=== PATIENT | male | born 1940 | race African-American/Black ===

== ENCOUNTER 2017-08-29 11:53 | Emergency (ER) | payer MEDICARE, MEDICAID ==
--- NOTE | 2017-08-29 13:06 | ER Document Report ---
ED Medical Screen (RME) - General Chief Complaint: Skin Problem Stated Complaint: POSSIBLE INFECTION ON LEGS Time Seen by Provider: 08/29/17 13:01 Mode of Arrival: Ambulatory Information source: Patient Notes: This is a 77-year-old man referred to the emergency room by [facility] ( primary care provider) for bilateral lower extremity cellulitis. Patient complains of increasing swelling, redness to both lower extremities. TRAVEL OUTSIDE OF THE [place] IN LAST 30 DAYS: No - Related Data Allergies/Adverse Reactions: Penicillins Allergy (Severe, Verified 08/29/17 11:55) Swelling Past Medical History - Past Medical History Cardiac Medical History: Reports: Hx Heart Attack - 's, Hx Hypercholesterolemia, Hx Hypertension Denies: Hx Coronary Artery Disease Pulmonary Medical History: Reports: Hx COPD, Hx Pneumonia Denies: Hx Asthma, Hx Bronchitis Neurological Medical History: Denies: Hx Cerebrovascular Accident, Hx Seizures Malignancy Medical History: Reports Hx Prostate Cancer Musculoskeltal Medical History: Reports Hx Arthritis - knees, ankles, back Past Surgical History: Reports: Hx Urinary Tract Surgery - prostate surgery. Denies: Hx Pacemaker - Immunizations Immunizations up to date: Yes Hx Diphtheria, Pertussis, Tetanus Vaccination: Yes Physical Exam - Vital signs Vitals: Temp Pulse Resp BP Pulse Ox 97.9 F 62 20 161/92 H 98 08/29/17 11:57 08/29/17 11:57 08/29/17 11:57 08/29/17 11:57 08/29/17 11:57 Course - Vital Signs Vital signs: Temp Pulse Resp BP Pulse Ox 97.9 F 62 20 161/92 H 98 08/29/17 11:57 08/29/17 11:57 08/29/17 11:57 08/29/17 11:57 08/29/17 11:57 Doctor's Discharge - Discharge Referrals: VOLODYMYR UP MD [Primary Care Provider] - Follow up as needed
--- NOTE | 2017-08-29 13:48 | RADIOLOGY REPORT (SQ) ---
EXAM DESCRIPTION: CHEST 2 VIEWS COMPLETED DATE/TIME: 08/29/2017 1:40 pm REASON FOR STUDY: fever COMPARISON: 09/16/2014. EXAM PARAMETERS: NUMBER OF VIEWS: two views TECHNIQUE: Digital Frontal and Lateral radiographic views of the chest acquired. RADIATION DOSE: NA LIMITATIONS: none FINDINGS: LUNGS AND PLEURA: No opacities, masses or pneumothorax. No pleural effusion. MEDIASTINUM AND HILAR STRUCTURES: No masses or contour abnormalities. HEART AND VASCULAR STRUCTURES: Heart normal size. No evidence for failure. BONES: No acute findings. HARDWARE: None in the chest. OTHER: No other significant finding. IMPRESSION: NO ACUTE RADIOGRAPHIC FINDING IN THE CHEST. TECHNICAL DOCUMENTATION: JOB ID: [id number] [employer]- All Rights Reserved Reading location - IP/workstation name: [email or web address]
[2017-08-29 14:05] LABS: ABSOLUTE BASOPHILS # (AUTO) 0.1 10^3/uL (0.0-0.2); ABSOLUTE MONOCYTES (AUTO) 0.7 10^3/uL (0.1-1.4); ABSOLUTE NEUT (AUTO) 3.6 10^3/uL (1.7-8.2); EOSINOPHILS % (AUTO) 13.8 % (0-6); HEMATOCRIT 38.6 % (37.9-51.0); HEMOGLOBIN 12.6 g/dL (13.5-17.0); LYMPHOCYTES % (AUTO) 27.1 % (13-45); MEAN CORPUSCULAR HEMOGLOBIN 31.1 pg (27.0-33.4); MEAN CORPUSCULAR HGB CONC 32.7 g/dL (32.0-36.0); MEAN CORPUSCULAR VOLUME 95 fl (80-97); MONOCYTES % (AUTO) 9.2 % (3-13); PLATELET COUNT 302 10^3/uL (150-450); RED BLOOD COUNT 4.05 10^6/uL (4.35-5.55); RED CELL DISTRIBUTION WIDTH 14.7 % (11.5-14.0); SEGMENTED NEUTROPHILS % (AUTO) 48.9 % (42-78); TOTAL CELLS COUNTED % (AUTO) 100 %; WHITE BLOOD COUNT 7.3 10^3/uL (4.0-10.5)
[2017-08-29 14:16] LABS: ALANINE AMINOTRANSFERASE 22 U/L (21-72); ALBUMIN 3.7 g/dL (3.5-5.0); ALKALINE PHOSPHATASE 97 U/L (38-126); ANION GAP 12 (5-19); ASPARTATE AMINO TRANSFERASE 35 U/L (17-59); BILIRUBIN,DIRECT 0.4 mg/dL (0.0-0.4); BILIRUBIN,TOTAL 0.4 mg/dL (0.2-1.3); BLOOD UREA NITROGEN 16 mg/dL (7-20); CALCIUM 9.3 mg/dL (8.4-10.2); CARBON DIOXIDE 24 mmol/L (22-30); CHLORIDE 108 mmol/L (98-107); GLUCOSE 77 mg/dL (75-110); POTASSIUM 4.3 mmol/L (3.6-5.0); SODIUM 143.6 mmol/L (137-145); TOTAL PROTEIN 6.7 g/dL (6.3-8.2)
[2017-08-29 14:22] LABS: PROTHROMBIN TIME 13.7 SEC (11.4-15.4)
--- NOTE | 2017-08-29 15:30 | ER Document Report ---
ED General <PLACIDO JARVIS C - Last Filed: 08/29/17 17:28> - General Mode of Arrival: Ambulatory TRAVEL OUTSIDE OF THE [place] IN LAST 30 DAYS: No - HPI Onset: Other Onset/Duration: Gradual, Persistent, Worse Quality of pain: Burning Severity: Moderate Associated symptoms: Fever. denies: Chest pain, Nausea, Vomiting, Shortness of breath Exacerbated by: Walking Relieved by: Denies Similar symptoms previously: Yes Recently seen / treated by doctor: Yes <LAZARO JIMENEZ - Last Filed: 08/29/17 22:02> - General Chief Complaint: Skin Problem Stated Complaint: POSSIBLE INFECTION ON LEGS Time Seen by Provider: 08/29/17 13:01 Notes: 77-year-old male with hypertension, hyperlipidemia, COPD, CAD, previous DVT in 2011 presents with bilateral lower leg swelling. Patient states that swelling and pain have been present for 3 months. He reports a worsening of pain over the last month. He was seen by [facility] today and was sent to the emergency room with concern for cellulitis versus DVT. Patient denies any recent chest pain, shortness of breath, abdominal pain, fever, chills. (LAZARO JIMENEZ) - Related Data Allergies/Adverse Reactions: Penicillins Allergy (Severe, Verified 08/29/17 11:55) Swelling Past Medical History - General Information source: Patient - Social History Smoking Status: Current Every Day Smoker Chew tobacco use (# tins/day): No Frequency of alcohol use: Occasional Drug Abuse: None Lives with: Alone Family History: Reviewed & Not Pertinent Patient has suicidal ideation: No Patient has homicidal ideation: No - Past Medical History Cardiac Medical History: Reports: Hx Heart Attack - 's, Hx Hypercholesterolemia, Hx Hypertension Denies: Hx Coronary Artery Disease Pulmonary Medical History: Reports: Hx COPD, Hx Pneumonia Denies: Hx Asthma, Hx Bronchitis Neurological Medical History: Denies: Hx Cerebrovascular Accident, Hx Seizures Renal/ Medical History: Denies: Hx Peritoneal Dialysis Malignancy Medical History: Reports Hx Prostate Cancer Musculoskeltal Medical History: Reports Hx Arthritis - knees, ankles, back Past Surgical History: Reports: Hx Urinary Tract Surgery - prostate surgery. Denies: Hx Pacemaker - Immunizations Immunizations up to date: Yes Hx Diphtheria, Pertussis, Tetanus Vaccination: Yes Hx Pneumococcal Vaccination: 03/26/08 <LAZARO JIMENEZ - Last Filed: 08/29/17 22:02> Review of Systems - Review of Systems Constitutional: Fever, Malaise, Weakness EENT: denies: Blurred vision Cardiovascular: denies: Chest pain, Dizziness Respiratory: denies: Short of breath Gastrointestinal: denies: Abdominal pain Genitourinary: denies: Dysuria, Flank pain, Hematuria Musculoskeletal: Joint swelling, Muscle stiffness, Leg swelling, Ankle swelling. denies: Back pain Skin: Dryness, Lesions, Rash Hematologic/Lymphatic: denies: Easy bleeding Neurological/Psychological: denies: Confusion -: Yes All other systems reviewed and negative <JIMENEZLAZAROSHARATH - Last Filed: 08/29/17 22:02> Physical Exam <SIMONAJULY C - Last Filed: 08/29/17 17:28> <JIMENEZLAZARO - Last Filed: 08/29/17 22:02> - Vital signs Vitals: Temp Pulse Resp BP Pulse Ox 97.9 F 62 20 161/92 H 98 08/29/17 11:57 08/29/17 11:57 08/29/17 11:57 08/29/17 11:57 08/29/17 11:57 - Notes Notes: PHYSICAL EXAMINATION: GENERAL: Well-appearing, well-nourished and in no acute distress. HEAD: Atraumatic, normocephalic. EYES: Pupils equal round and reactive to light, extraocular movements intact, sclera anicteric, conjunctiva are normal. ENT: Nares patent, oropharynx clear without exudates. Moist mucous membranes. NECK: Normal range of motion, supple without lymphadenopathy LUNGS: Breath sounds clear to auscultation bilaterally and equal. No wheezes rales or rhonchi. HEART: Regular rate and rhythm without murmurs ABDOMEN: Soft, nontender, nondistended abdomen. No guarding, no rebound. No masses appreciated. Musculoskeletal: Normal range of motion, no pitting or edema. No cyanosis. NEUROLOGICAL: Cranial nerves grossly intact. Normal speech, normal gait. Normal sensory, motor exams PSYCH: Normal mood, normal affect. SKIN: Erythema bilateral lower extremities no associated warmth. Multiple plaque-like lesions on his trunk, lower extremities. (LAZARO JIMENEZ) Course - Laboratory Result Diagrams: 08/29/17 13:50 08/29/17 13:50 <MOSUNITHAPLACIDO Emily - Last Filed: 08/29/17 17:28> - Laboratory Result Diagrams: 08/29/17 13:50 08/29/17 13:50 - Diagnostic Test Radiology reviewed: Image reviewed, Reports reviewed <LAZARO JIMENEZ E - Last Filed: 08/29/17 22:02> - Re-evaluation Re-evalutation: 08/29/17 21:58 Laboratory 08/29/17 08/29/17 08/29/17 13:50 13:50 13:50 WBC 7.3 RBC 4.05 L Hgb 12.6 L Hct 38.6 MCV 95 MCH 31.1 MCHC 32.7 RDW 14.7 H Plt Count 302 Seg Neutrophils % 48.9 Lymphocytes % 27.1 Monocytes % 9.2 Eosinophils % 13.8 H Basophils % 1.0 Absolute Neutrophils 3.6 Absolute Lymphocytes 2.0 Absolute Monocytes 0.7 Absolute Eosinophils 1.0 H Absolute Basophils 0.1 PT 13.7 INR 1.00 Sodium 143.6 Potassium 4.3 Chloride 108 H Carbon Dioxide 24 Anion Gap 12 BUN 16 Creatinine 1.90 H Est GFR ( Amer) 42 L Est GFR (Non-Af Amer) 34 L Glucose 77 Lactic Acid Calcium 9.3 Phosphorus Magnesium Total Bilirubin 0.4 Direct Bilirubin 0.4 Neonat Total Bilirubin Not Reportable Neonat Direct Bilirubin Not Reportable Neonat Indirect Bili Not Reportable AST 35 ALT 22 Alkaline Phosphatase 97 NT-Pro-B Natriuret Pep Total Protein 6.7 Albumin 3.7 08/29/17 08/29/17 08/29/17 13:50 13:50 13:50 WBC RBC Hgb Hct MCV MCH MCHC RDW Plt Count Seg Neutrophils % Lymphocytes % Monocytes % Eosinophils % Basophils % Absolute Neutrophils Absolute Lymphocytes Absolute Monocytes Absolute Eosinophils Absolute Basophils PT INR Sodium Potassium Chloride Carbon Dioxide Anion Gap BUN Creatinine Est GFR ( Amer) Est GFR (Non-Af Amer) Glucose Lactic Acid 2.1 Calcium Phosphorus 4.0 Magnesium 1.9 Total Bilirubin Direct Bilirubin Neonat Total Bilirubin Neonat Direct Bilirubin Neonat Indirect Bili AST ALT Alkaline Phosphatase NT-Pro-B Natriuret Pep 3440 H Total Protein Albumin 08/29/17 17:40 WBC RBC Hgb Hct MCV MCH MCHC RDW Plt Count Seg Neutrophils % Lymphocytes % Monocytes % Eosinophils % Basophils % Absolute Neutrophils Absolute Lymphocytes Absolute Monocytes Absolute Eosinophils Absolute Basophils PT INR Sodium Potassium Chloride Carbon Dioxide Anion Gap BUN Creatinine Est GFR ( Amer) Est GFR (Non-Af Amer) Glucose Lactic Acid 3.2 H Calcium Phosphorus Magnesium Total Bilirubin Direct Bilirubin Neonat Total Bilirubin Neonat Direct Bilirubin Neonat Indirect Bili AST ALT Alkaline Phosphatase NT-Pro-B Natriuret Pep Total Protein Albumin Chest X-Ray 08/29/17 13:05 IMPRESSION: NO ACUTE RADIOGRAPHIC FINDING IN THE CHEST. 08/29/17 21:59 77-year-old male with hypertension, hyperlipidemia, COPD, CAD, previous DVT in 2011 presents with bilateral lower leg swelling. Patient states that swelling and pain have been present for 3 months. He reports a worsening of pain over the last month. He was seen by [facility] today and was sent to the emergency room with concern for cellulitis versus DVT. Patient was seen by myself upon arrival. Vital signs were reviewed. Patient is afebrile, normotensive and not hypoxic. Patient does not appear toxic or dehydrated. They are in no acute distress. Previous medical records and nursing notes reviewed. Significant findings include lower extremity edema, erythema and multiple plaque-like lesions. Patient received clindamycin IV. Hospitalist was consulted for admission for lower extremity cellulitis. Hospitalist evaluated the patient and deemed him safe for discharge home. Discharge instructions and prescriptions were provided by the hospitalist. Patient is agreeable with discharge home. 08/29/17 22:00 (LAZARO JIMENEZ) - Vital Signs Vital signs: Temp Pulse Resp BP Pulse Ox 97.2 F 77 18 153/90 H 94 08/29/17 18:23 08/29/17 18:23 08/29/17 18:23 08/29/17 18:23 08/29/17 18:23 - Laboratory Laboratory results interpreted by hi: 08/29/17 08/29/17 08/29/17 13:50 13:50 13:50 RBC 4.05 L Hgb 12.6 L RDW 14.7 H Eosinophils % 13.8 H Absolute Eosinophils 1.0 H Chloride 108 H Creatinine 1.90 H Est GFR ( Amer) 42 L Est GFR (Non-Af Amer) 34 L Lactic Acid NT-Pro-B Natriuret Pep 3440 H 08/29/17 17:40 RBC Hgb RDW Eosinophils % Absolute Eosinophils Chloride Creatinine Est GFR ( Amer) Est GFR (Non-Af Amer) Lactic Acid 3.2 H NT-Pro-B Natriuret Pep Discharge <PLACIDO JARVIS C - Last Filed: 08/29/17 17:28> - Discharge Admitting Provider: Hospitalist Unit Admitted: Medical Floor <LAZARO JIMENEZ E - Last Filed: 08/29/17 22:02> - Discharge Clinical Impression: Rash and nonspecific skin eruption Condition: Good Disposition: HOME, SELF-CARE
[2017-08-29] MEDS ORDERED: CLINDAMYCIN 600 MG/D5W RTU 600 MG/50 ML RTUPB IV ONE (15:47)
[2017-08-29 18:26] VITALS: BP 153/90
--- NOTE | 2017-08-29 18:31 | PDOC CONSULTATION ---
Consultation Consult Date: 08/29/17 Attending physician:: LAZARO JIMENEZ Consult reason:: Rash, possible cellulitis History of Present Illness Admission Date/PCP: Jeri LINDA Patient complains of: Rash and itching all over his body History of Present Illness: BRANDYN NOGUEIRA JR is a 77 year old male with past history of Hypertension Chronic pain Outpatient meds: Hydralazine 50mg TID Aspirin 81mg daily Toprol XL 50mg daily Cymbalta 30 mg daily He presented with a generalized itching rash over hos entore body including neck chest and torso and extremities. There is hyperkeratosis and mild erythema. Chronic Lower extremity edema, L leg slightly more red than the right. No DVT of LE per Dr. Jimenez. He was given IV Clindamycin 1 dose in the ER. patient woulf like to go home. I think he could be sent home with a course of steroids and antibiotics for eczema and possible early L leg cellulitis. Past Medical History Cardiac Medical History: Reports: Hyperlipidema, Hypertension Pulmonary Medical History: Reports: Pneumonia Musculoskeltal Medical History: Reports: Arthritis - knees, ankles, back Past Surgical History Past Surgical History: Denies: Pacemaker Social History Smoking Status: Current Every Day Smoker Frequency of Alcohol Use: Heavy Hx Recreational Drug Use: No Family History Family History: Hypertension Parental Family History Reviewed: Yes Children Family History Reviewed: Yes Sibling(s) Family History Reviewed.: Yes Medication/Allergy Home Medications: Clindamycin HCl 300 mg PO Q6H 7 Days #28 capsule 08/29/17 Lactobacillus Acidophilus [Acidophilus Lactobacilli] 1 each PO DAILY 10 Days # 10 capsule 08/29/17 Prednisone 60 mg PO DAILY #26 tablet 08/29/17 Allergies/Adverse Reactions: Penicillins Allergy (Severe, Verified 08/29/17 11:55) Swelling Review of Systems Constitutional: ABSENT: fever(s) Eyes: ABSENT: visual disturbances Ears: ABSENT: hearing changes Nose, Mouth, and Throat: ABSENT: sore throat Cardiovascular: PRESENT: edema. ABSENT: chest pain Respiratory: ABSENT: dyspnea Gastrointestinal: ABSENT: abdominal pain, dysphagia Genitourinary: ABSENT: dysuria Integumentary: PRESENT: pruritus, rash Neurological: ABSENT: focal weakness Psychiatric: ABSENT: hallucinations Physical Exam Vital Signs: Temp Pulse Resp BP Pulse Ox 97.9 F 62 20 161/92 H 98 08/29/17 11:57 06/06/18 11:57 08/29/17 11:57 08/29/17 11:57 08/29/17 11:57 Intake & Output 08/28/17 08/29/17 08/30/17 06:59 06:59 06:59 Weight 87.6 kg General appearance: PRESENT: no acute distress Head exam: PRESENT: normocephalic Respiratory exam: PRESENT: symmetrical, unlabored. ABSENT: crackles, wheezes GI/Abdominal exam: PRESENT: normal bowel sounds, soft. ABSENT: tenderness Rectal exam: PRESENT: deferred Extremities exam: PRESENT: pedal edema Neurological exam: PRESENT: alert, awake, oriented to person, oriented to place , oriented to time, oriented to situation Skin exam: PRESENT: rash - Hyperkeratotic rash over torso and extremities and ears Results Laboratory Results: 08/29/17 13:50 08/29/17 13:50 08/29/17 08/29/17 08/29/17 13:50 13:50 13:50 WBC 7.3 RBC 4.05 L Hgb 12.6 L Hct 38.6 MCV 95 MCH 31.1 MCHC 32.7 RDW 14.7 H Plt Count 302 Seg Neutrophils % 48.9 Lymphocytes % 27.1 Monocytes % 9.2 Eosinophils % 13.8 H Basophils % 1.0 Absolute Neutrophils 3.6 Absolute Lymphocytes 2.0 Absolute Monocytes 0.7 Absolute Eosinophils 1.0 H Absolute Basophils 0.1 Sodium 143.6 Potassium 4.3 Chloride 108 H Carbon Dioxide 24 Anion Gap 12 BUN 16 Creatinine 1.90 H Est GFR ( Amer) 42 L Est GFR (Non-Af Amer) 34 L Glucose 77 Lactic Acid 2.1 Calcium 9.3 Phosphorus Magnesium Total Bilirubin 0.4 AST 35 ALT 22 Alkaline Phosphatase 97 Total Protein 6.7 Albumin 3.7 08/29/17 13:50 WBC RBC Hgb Hct MCV MCH MCHC RDW Plt Count Seg Neutrophils % Lymphocytes % Monocytes % Eosinophils % Basophils % Absolute Neutrophils Absolute Lymphocytes Absolute Monocytes Absolute Eosinophils Absolute Basophils Sodium Potassium Chloride Carbon Dioxide Anion Gap BUN Creatinine Est GFR ( Amer) Est GFR (Non-Af Amer) Glucose Lactic Acid Calcium Phosphorus 4.0 Magnesium 1.9 Total Bilirubin AST ALT Alkaline Phosphatase Total Protein Albumin 08/29/17 13:50 NT-Pro-B Natriuret Pep 3440 H Impressions: Chest X-Ray 08/29/17 13:05 IMPRESSION: NO ACUTE RADIOGRAPHIC FINDING IN THE CHEST. Assessment & Plan - Diagnosis (1) Rash and nonspecific skin eruption Is this a current diagnosis for this admission?: Yes Plan: Course of Prednisone and Antibiotic Follow up with PCP in 2-3 days. - Time Time Spent: 50 to 70 Minutes Anticipated discharge: Home
[2017-08-29] MEDS ORDERED: PREDNISONE 20 MG TABLET PO ONE (19:00)
--- NOTE | 2017-08-30 08:11 | XCELERA REPORT ---
[address] [address] Lower Extremity Venous Evaluation Name: BRANDYN NOGUEIRA JR Age: 77 yrs Gender: Male : 1940 Patient Status: Emergency Patient Location: ER Study Date: 08/29/2017 02:31 PM Procedure: Color flow and duplex imaging bilaterally of the veins of the lower extremities as well as the Common Femoral veins. Reason For Study: bilateral le swelling: l>R Ordering Physician: SE BABB Performed By: Cal Hale Right Sided Venous Evaluation Normal vessel filling wall to wall, compression and augmentation as well as Colour flow down to the infrageniculate veins. Left Sided Venous Evaluation Normal vessel filling wall to wall, compression and augmentation as well as Colour flow down to the infrageniculate veins. Interpretation Summary No duplex evidence of DVT or obstruction in the bilateral lower extremities. : SE BABB Lennox
== END 2017-08-29 17:10 | disposition home or self-care (01) ==
LOC: ER 11:53 → EH 18:34 → UNDOADMIN 18:34 → UNDODISIN 19:31
DX: M79.89 Other specified soft tissue disorders (principal); R21 Rash and other nonspecific skin eruption; R50.9 Fever, unspecified; R53.1 Weakness; F17.200 Nicotine dependence, unspecified, uncomplicated; I10 Essential (primary) hypertension; J44.9 Chronic obstructive pulmonary disease, unspecified; I25.10 Atherosclerotic heart disease of native coronary artery without angina pectoris; E78.00 Pure hypercholesterolemia, unspecified; Z86.718 Personal history of other venous thrombosis and embolism; Z88.0 Allergy status to penicillin; I25.2 Old myocardial infarction; Z85.46 Personal history of malignant neoplasm of prostate
CPT/HCPCS: 99284; 96365; 36415; 87040; 83735; 84100; 85025; 85610; 80053; 83605; 83880; 93970 ×2; 71046; A9270; J7512

== ENCOUNTER 2017-09-22 20:46 | Emergency (ER) | payer MEDICARE, MEDICAID ==
--- NOTE | 2017-09-22 21:24 | ER Document Report ---
ED Medical Screen (RME) - General Chief Complaint: Skin Problem Stated Complaint: RASH Time Seen by Provider: 09/22/17 21:17 Mode of Arrival: Ambulatory Information source: Patient Notes: PATIENT C/O SEVERE DRY SKIN,TREATED WITH CREAM. Referred to derm but doesn't have an appointment until October. Denied new medications. TRAVEL OUTSIDE OF THE [place] IN LAST 30 DAYS: No - Related Data Allergies/Adverse Reactions: Penicillins Allergy (Severe, Verified 08/29/17 11:55) Swelling Past Medical History - Past Medical History Cardiac Medical History: Reports: Hx Heart Attack - s, Hx Hypercholesterolemia, Hx Hypertension Denies: Hx Coronary Artery Disease Pulmonary Medical History: Reports: Hx COPD, Hx Pneumonia Denies: Hx Asthma, Hx Bronchitis Neurological Medical History: Denies: Hx Cerebrovascular Accident, Hx Seizures Renal/ Medical History: Denies: Hx Peritoneal Dialysis Malignancy Medical History: Reports Hx Prostate Cancer Musculoskeltal Medical History: Reports Hx Arthritis - knees, ankles, back Past Surgical History: Reports: Hx Urinary Tract Surgery - prostate surgery. Denies: Hx Pacemaker - Immunizations Immunizations up to date: Yes Hx Diphtheria, Pertussis, Tetanus Vaccination: Yes Physical Exam - Vital signs Vitals: Temp Pulse Resp BP Pulse Ox 98.6 F 93 24 H 184/87 H 96 09/22/17 20:58 09/22/17 20:58 09/22/17 20:58 09/22/17 20:58 09/22/17 20:58 Course - Vital Signs Vital signs: Temp Pulse Resp BP Pulse Ox 98.6 F 93 24 H 184/87 H 96 09/22/17 20:58 09/22/17 20:58 09/22/17 20:58 09/22/17 20:58 09/22/17 20:58
[2017-09-22 23:18] LABS: ABSOLUTE BASOPHILS # (AUTO) 0.1 10^3/uL (0.0-0.2); ABSOLUTE EOSINOPHILS # (AUTO) 0.4 10^3/uL (0.0-0.6); ABSOLUTE LYMPHOCYTES (AUTO) 1.6 10^3/uL (0.5-4.7); ABSOLUTE MONOCYTES (AUTO) 0.8 10^3/uL (0.1-1.4); EOSINOPHILS % (AUTO) 4.7 % (0-6); HEMATOCRIT 37.7 % (37.9-51.0); HEMOGLOBIN 12.3 g/dL (13.5-17.0); LYMPHOCYTES % (AUTO) 20.8 % (13-45); MEAN CORPUSCULAR HEMOGLOBIN 30.4 pg (27.0-33.4); MEAN CORPUSCULAR HGB CONC 32.8 g/dL (32.0-36.0); MEAN CORPUSCULAR VOLUME 93 fl (80-97); MONOCYTES % (AUTO) 9.6 % (3-13); PLATELET COUNT 245 10^3/uL (150-450); RED BLOOD COUNT 4.05 10^6/uL (4.35-5.55); RED CELL DISTRIBUTION WIDTH 15.4 % (11.5-14.0); SEGMENTED NEUTROPHILS % (AUTO) 63.9 % (42-78); TOTAL CELLS COUNTED % (AUTO) 100 %; WHITE BLOOD COUNT 7.8 10^3/uL (4.0-10.5)
[2017-09-22 23:41] LABS: ALANINE AMINOTRANSFERASE 20 U/L (21-72); ALBUMIN 3.2 g/dL (3.5-5.0); ALKALINE PHOSPHATASE 99 U/L (38-126); ANION GAP 15 (5-19); ASPARTATE AMINO TRANSFERASE 23 U/L (17-59); BILIRUBIN,DIRECT 0.5 mg/dL (0.0-0.4); BILIRUBIN,TOTAL 0.7 mg/dL (0.2-1.3); BLOOD UREA NITROGEN 9 mg/dL (7-20); CARBON DIOXIDE 23 mmol/L (22-30); CHLORIDE 111 mmol/L (98-107); GLUCOSE 98 mg/dL (75-110); POTASSIUM 4.6 mmol/L (3.6-5.0); SODIUM 148.9 mmol/L (137-145)
[2017-09-22] MEDS ORDERED: PREDNISONE 20 MG TABLET PO ONE (23:57)
--- NOTE | 2017-09-23 00:02 | ER Document Report ---
ED General - General Chief Complaint: Skin Problem Stated Complaint: RASH Time Seen by Provider: 09/22/17 21:17 Mode of Arrival: Ambulatory Notes: Patient is a 77-year-old male with a past medical history of hypertension, noncompliant with medications, history of chronic kidney disease who presents with one-month ongoing diffuse dry skin that is intensely pruritic. He was seen in the emergency department approximately 3 weeks ago for the same. At that time he was placed on a course of steroids and antibiotics. He states that he did have some improvement while on the brief course of steroids but when they were discontinued the dry skin and itching continued. He has seen his general doctor and is being prescribed a "powder to use during bath time as well as a cream for after baths" but has not had any significant relief with these interventions. He is scheduled to see a pipeline construction inspector in October but states that the itching has become so intense he could not wait any longer. He denies any fever or constitutional symptoms. Denies anything is new or different that prompted a visit to the emergency department today. TRAVEL OUTSIDE OF THE [place] IN LAST 30 DAYS: No - Related Data Allergies/Adverse Reactions: Penicillins Allergy (Severe, Verified 08/29/17 11:55) Swelling Past Medical History - General Information source: Patient - Social History Smoking Status: Never Smoker Frequency of alcohol use: None Drug Abuse: None Lives with: Family Family History: Reviewed & Not Pertinent, Hypertension - Past Medical History Cardiac Medical History: Reports: Hx Heart Attack - 90's, Hx Hypercholesterolemia, Hx Hypertension Denies: Hx Coronary Artery Disease Pulmonary Medical History: Reports: Hx COPD, Hx Pneumonia Denies: Hx Asthma, Hx Bronchitis Neurological Medical History: Denies: Hx Cerebrovascular Accident, Hx Seizures Renal/ Medical History: Denies: Hx Peritoneal Dialysis Malignancy Medical History: Reports Hx Prostate Cancer Musculoskeltal Medical History: Reports Hx Arthritis - knees, ankles, back Past Surgical History: Reports: Hx Urinary Tract Surgery - prostate surgery. Denies: Hx Pacemaker - Immunizations Immunizations up to date: Yes Hx Diphtheria, Pertussis, Tetanus Vaccination: Yes Hx Pneumococcal Vaccination: 03/26/08 Review of Systems - Review of Systems Notes: Constitutional: Negative for fever. HENT: Negative for sore throat. Eyes: Negative for visual changes. Cardiovascular: Negative for chest pain. Respiratory: Negative for shortness of breath. Gastrointestinal: Negative for abdominal pain, vomiting or diarrhea. Genitourinary: Negative for dysuria. Musculoskeletal: Negative for back pain. Skin: Positive for diffusely dry skin associated pruritus Neurological: Negative for headaches, weakness or numbness. 10 point ROS negative except as marked above and in HPI. Physical Exam - Vital signs Vitals: Temp Pulse Resp BP Pulse Ox 98.6 F 93 24 H 184/87 H 96 09/22/17 20:58 09/22/17 20:58 09/22/17 20:58 09/22/17 20:58 09/22/17 20:58 Interpretation: Hypertensive Notes: PHYSICAL EXAMINATION: GENERAL: Well-appearing, well-nourished and in no acute distress. HEAD: Atraumatic, normocephalic. EYES: Pupils equal round and reactive to light, extraocular movements intact, sclera anicteric, conjunctiva are normal. ENT: nares patent, oropharynx clear without exudates. Moist mucous membranes. No mucosal lesions. NECK: Normal range of motion, supple without lymphadenopathy LUNGS: Breath sounds clear to auscultation bilaterally and equal. No wheezes rales or rhonchi. HEART: Regular rate and rhythm without murmurs ABDOMEN: Soft, nontender, normoactive bowel sounds. No guarding, no rebound. No masses appreciated. EXTREMITIES: Normal range of motion, no pitting or edema. No cyanosis. NEUROLOGICAL: No focal neurological deficits. Moves all extremities spontaneously and on command. PSYCH: Normal mood, normal affect. SKIN: Skin is globally dry, cracked, peeling. No erythema or purulent drainage. Course - Re-evaluation Re-evalutation: 09/23/17 00:02 Patient presents with a nonspecific skin eruption of diffusely dry skin over the entirety of his body excluding his face although there are notable patches on his ears. He is otherwise nontoxic in appearance, vitals within normal limits, the rashes been ongoing for greater than 1 month. Labs unchanged from his prior assessment. I do not suspect this is a life-threatening presentation although I am uncertain of the exact diagnosis and explained this to the patient. He states when he was on steroids for a brief period time he did have significant improvement but that the rash recurred after he came off the steroids. I will place him on a 30 day steroid taper and have instructed him that he is to follow-up with dermatology at his earliest ability. At this time will discharge with return precautions and follow-up recommendations. Verbal discharge instructions given a the bedside and opportunity for questions given. Medication warnings reviewed. Patient is in agreement with this plan and has verbalized understanding of return precautions and the need for primary care follow-up in the next 24-72 hours. - Vital Signs Vital signs: Temp Pulse Resp BP Pulse Ox 97.7 F 96 18 188/108 H 97 09/23/17 00:30 09/23/17 00:30 09/23/17 00:30 09/23/17 00:30 09/23/17 00:30 - Laboratory Result Diagrams: 09/22/17 22:05 09/22/17 22:05 Laboratory results interpreted by me: 09/22/17 09/22/17 22:05 22:05 RBC 4.05 L Hgb 12.3 L Hct 37.7 L RDW 15.4 H Sodium 148.9 H Chloride 111 H Creatinine 1.83 H Est GFR ( Amer) 44 L Est GFR (Non-Af Amer) 36 L Direct Bilirubin 0.5 H ALT 20 L Total Protein 6.0 L Albumin 3.2 L Discharge - Discharge Clinical Impression: Rash and nonspecific skin eruption Chronic kidney disease Qualifiers: Chronic kidney disease stage: unspecified stage Qualified Code(s): N18.9 - Chronic kidney disease, unspecified Condition: Good Disposition: HOME, SELF-CARE Prescriptions: Prednisone [Deltasone 20 mg Tablet] 1 tab PO ASDIR PRN 30 Days tablet PRN Reason:
[2017-09-23 00:54] VITALS: BP 188/108
== END 2017-09-23 00:51 | disposition home or self-care (01) ==
LOC: ER 20:46
DX: R21 Rash and other nonspecific skin eruption (principal); L29.8 Other pruritus; I12.9 Hypertensive chronic kidney disease with stage 1 through stage 4 chronic kidney disease, or unspecified chronic kidney disease; N18.9 Chronic kidney disease, unspecified; J44.9 Chronic obstructive pulmonary disease, unspecified; Z91.14 Patient's other noncompliance with medication regimen; Z85.46 Personal history of malignant neoplasm of prostate; Z88.0 Allergy status to penicillin
CPT/HCPCS: 99283; 36415; 85025; 80053; A9270; J7512

== ENCOUNTER 2017-10-01 18:58 | Emergency (ER) | payer MEDICARE, MEDICAID ==
[2017-10-01] MEDS ORDERED: HYDROXYZINE PAMOATE 50 MG CAPSULE PO ONE (20:11)
--- NOTE | 2017-10-01 20:17 | ER Document Report ---
ED General - General Chief Complaint: Skin Problem Stated Complaint: LOCKHART ISSUE/POSSIBLE RASH Time Seen by Provider: 10/01/17 19:58 Notes: 69-year-old male here with complaints of ongoing 1-2 months dry itchy skin. He has seen his primary care doctor for this and has an appointment in October with a cocktail server. He has been here several times for this and has been placed on steroids. Most recently, he was placed on a 30 day steroid taper which she has finished. He reports that once he finishes the steroids, the symptoms worsen. Steroids never completely resolve the symptoms. Tonight the itching was so bad he cannot wait any longer so he came in. Besides using a lotion, of which she does not know the name, he has not tried anything else. Denies any other symptoms. TRAVEL OUTSIDE OF THE [place] IN LAST 30 DAYS: No - Related Data Allergies/Adverse Reactions: Penicillins Allergy (Severe, Verified 08/29/17 11:55) Swelling Past Medical History - Social History Smoking Status: Current Every Day Smoker Chew tobacco use (# tins/day): No Frequency of alcohol use: None Drug Abuse: None Family History: Reviewed & Not Pertinent, Hypertension Patient has suicidal ideation: No Patient has homicidal ideation: No - Past Medical History Cardiac Medical History: Reports: Hx Heart Attack - 90's, Hx Hypercholesterolemia, Hx Hypertension Denies: Hx Coronary Artery Disease Pulmonary Medical History: Reports: Hx COPD, Hx Pneumonia Denies: Hx Asthma, Hx Bronchitis Neurological Medical History: Denies: Hx Cerebrovascular Accident, Hx Seizures Renal/ Medical History: Denies: Hx Peritoneal Dialysis Malignancy Medical History: Reports Hx Prostate Cancer Musculoskeltal Medical History: Reports Hx Arthritis - knees, ankles, back Past Surgical History: Reports: Hx Urinary Tract Surgery - prostate surgery. Denies: Hx Pacemaker - Immunizations Immunizations up to date: Yes Hx Diphtheria, Pertussis, Tetanus Vaccination: Yes Hx Pneumococcal Vaccination: 03/26/08 Review of Systems - Review of Systems Notes: See history of present illness for pertinent positive review of systems; otherwise all review of systems have been reviewed and are negative Physical Exam - Vital signs Vitals: Temp Pulse Resp BP Pulse Ox 97.5 F 84 16 186/113 H 98 10/01/17 19:25 10/01/17 19:25 10/01/17 19:25 10/01/17 19:25 10/01/17 19:25 - Notes Notes: PHYSICAL EXAMINATION: GENERAL: Well-appearing and in no acute distress. HEAD: Atraumatic, normocephalic. EYES: Pupils equal round and reactive to light, extraocular movements intact, sclera anicteric, conjunctiva are normal. ENT: nares patent, oropharynx clear without exudates. Moist mucous membranes. NECK: Normal range of motion, supple without lymphadenopathy LUNGS: CTAB and equal. No wheezes rales or rhonchi. HEART: Regular rate and rhythm without murmurs ABDOMEN: Soft, no tenderness. No facial grimacing/wincing upon palpation. No guarding, no rebound. EXTREMITIES: Normal range of motion, no pitting edema. No cyanosis. NEUROLOGICAL: Cranial nerves grossly intact. Normal sensory/motor exams. PSYCH: Normal mood, normal affect. SKIN: Warm, Dry, normal turgor, no rashes or lesions noted; diffuse xerosis and erythroderma of extremities and trunk however no janet erythema induration fluctuance drainage to suggest infectious process Course - Re-evaluation Re-evalutation: 10/01/17 20:17 MEDICAL DECISION MAKING: Patient appears to have some sort of chronic skin condition It has been ongoing several months now I do not feel he has an emergency medical condition today I will give him a dose of hydroxyzine here and prescription for same Encouraged him to keep his dermatology appointment in October Also discussed with him to follow-up PCP next day or few Patient (and ) understands and agrees to the plan of care - Vital Signs Vital signs: Temp Pulse Resp BP Pulse Ox 97.5 F 84 16 186/113 H 98 10/01/17 19:25 10/01/17 19:25 10/01/17 19:25 10/01/17 19:25 10/01/17 19:25 Discharge - Discharge Clinical Impression: Xerosis of skin Condition: Good Disposition: HOME, SELF-CARE Additional Instructions: You were seen in the emergency department at [facility]. Use the hydroxyzine as needed for itching. If you were given any sedating medications, such as the hydroxyzine, be sure not to operate heavy machinery (example - driving) and be sure you are not too sedated to walk appropriately. Please followup with your cocktail server in the next few days for further management/ evaluation. Please return to the emergency department for worsening of symptoms or any symptom that you deem to be concerning or life-threatening. Thank you for allowing us to be part of your care. Prescriptions: Hydroxyzine Pamoate [Vistaril 50 mg Capsule] 50 mg PO BIDP PRN #30 capsule PRN Reason: Itching
--- NOTE | 2017-10-01 20:29 | ER Document Report ---
Doctor's Note Notes: 10/01/17 20:28 Pt BP elevated however he is asymptomatic. Instructed to take his BP meds when he gets home. Dc home.
[2017-10-01 20:34] VITALS: BP 193/117
== END 2017-10-01 20:32 | disposition home or self-care (01) ==
LOC: ER 18:58
DX: L85.3 Xerosis cutis (principal); F17.200 Nicotine dependence, unspecified, uncomplicated; I10 Essential (primary) hypertension
CPT/HCPCS: 99282; A9270

== ENCOUNTER 2017-10-06 13:38 | Emergency (ER) | payer MEDICARE, MEDICAID ==
[2017-10-06] MEDS ORDERED: METHYLPREDNISOLONE INJ 125 MG/2 ML SDV IV ONE (14:24)
[2017-10-06] MEDS ORDERED: NORMAL SALINE 1000 ML 1,000 ML IV ONE (14:25)
[2017-10-06 14:38] LABS: ABSOLUTE BASOPHILS # (AUTO) 0.1 10^3/uL (0.0-0.2); ABSOLUTE LYMPHOCYTES (AUTO) 2.9 10^3/uL (0.5-4.7); ABSOLUTE MONOCYTES (AUTO) 0.9 10^3/uL (0.1-1.4); EOSINOPHILS % (AUTO) 0.3 % (0-6); HEMATOCRIT 27.2 % (37.9-51.0); MEAN CORPUSCULAR HEMOGLOBIN 29.7 pg (27.0-33.4); MEAN CORPUSCULAR VOLUME 90 fl (80-97); MONOCYTES % (AUTO) 6.2 % (3-13); PLATELET COUNT 226 10^3/uL (150-450); RED BLOOD COUNT 3.02 10^6/uL (4.35-5.55); RED CELL DISTRIBUTION WIDTH 15.6 % (11.5-14.0); SEGMENTED NEUTROPHILS % (AUTO) 71.5 % (42-78); TOTAL CELLS COUNTED % (AUTO) 100 %; WHITE BLOOD COUNT 13.9 10^3/uL (4.0-10.5)
[2017-10-06] MEDS ORDERED: FENTANYL CITRATE INJ/PF 100 MCG/2 ML AMPUL IV ONE (14:47)
[2017-10-06 14:54] LABS: ALANINE AMINOTRANSFERASE 20 U/L (21-72); ALBUMIN 2.5 g/dL (3.5-5.0); ALKALINE PHOSPHATASE 81 U/L (38-126); ANION GAP 8 (5-19); ASPARTATE AMINO TRANSFERASE 28 U/L (17-59); BILIRUBIN,DIRECT 0.3 mg/dL (0.0-0.4); BILIRUBIN,TOTAL 0.3 mg/dL (0.2-1.3); BLOOD UREA NITROGEN 38 mg/dL (7-20); CALCIUM 8.4 mg/dL (8.4-10.2); CARBON DIOXIDE 29 mmol/L (22-30); CHLORIDE 110 mmol/L (98-107); CREATINE KINASE 47 U/L (55-170); GLUCOSE 139 mg/dL (75-110); SODIUM 147.2 mmol/L (137-145)
[2017-10-06 15:19] LABS: APPEARANCE,URINE SLIGHTLY-CLOUDY; BILIRUBIN,URINE NEGATIVE (NEGATIVE); COLOR,URINE YELLOW; GLUCOSE, URINE NEGATIVE (NEGATIVE); KETONES,URINE NEGATIVE (NEGATIVE); LEUKOCYTE ESTERASE,URINE NEGATIVE (NEGATIVE); NITRITE,URINE NEGATIVE (NEGATIVE); PROTEIN,URINE 100 mg/dL (NEGATIVE); URINE SPECIFIC GRAVITY 1.018; UROBILINOGEN,URINE NEGATIVE mg/dL (<2.0)
--- NOTE | 2017-10-06 15:50 | ER Document Report ---
ED General - General Mode of Arrival: Ambulatory Information source: Patient TRAVEL OUTSIDE OF THE [place] IN LAST 30 DAYS: No <MONIQUE DUDLEY - Last Filed: 10/06/17 17:49> <BRAYAN OLVERA - Last Filed: 10/06/17 18:51> - General Stated Complaint: FALL SYNCOPE Time Seen by Provider: 10/06/17 14:05 Notes: 77-year-old male presenting today after being found on the floor by a friend at bedside. Patient was covered in bloody stool according to the patient and the friend at bedside. Patient states last night he felt lightheaded prior to falling and he was unable to get up off the ground. Patient also mentions skin rash/irritation that has been ongoing for months. Patient has been seen here several times in the past for this rash and according to records has a derm appointment in October. (MONIQUE DUDLEY) - Related Data Allergies/Adverse Reactions: Penicillins Allergy (Severe, Verified 10/06/17 15:56) Swelling Past Medical History - General Information source: Patient, Relative - Social History Smoking Status: Current Every Day Smoker Cigarette use (# per day): Yes Family History: Reviewed & Not Pertinent, Hypertension - Past Medical History Cardiac Medical History: Reports: Hx Heart Attack - 's, Hx Hypercholesterolemia, Hx Hypertension Pulmonary Medical History: Reports: Hx COPD, Hx Pneumonia Malignancy Medical History: Reports Hx Prostate Cancer Musculoskeletal Medical History: Reports Hx Arthritis - knees, ankles, back Past Surgical History: Reports: Hx Urinary Tract Surgery - prostate surgery - Immunizations Immunizations up to date: Yes Hx Diphtheria, Pertussis, Tetanus Vaccination: Yes Hx Pneumococcal Vaccination: 03/26/08 <MONIQUE DUDLEY - Last Filed: 10/06/17 17:49> Review of Systems - Review of Systems Constitutional: No symptoms reported EENT: No symptoms reported Cardiovascular: No symptoms reported Respiratory: No symptoms reported Gastrointestinal: See HPI, Rectal bleeding Genitourinary: No symptoms reported Male Genitourinary: No symptoms reported Musculoskeletal: No symptoms reported Skin: See HPI, Dryness Hematologic/Lymphatic: No symptoms reported Neurological/Psychological: No symptoms reported -: Yes All other systems reviewed and negative <MONIQUE DUDLEY - Last Filed: 10/06/17 17:49> Physical Exam <MONIQUE DUDLEY - Last Filed: 10/06/17 17:49> <BRAYAN OLVERA - Last Filed: 10/06/17 18:51> - Vital signs Vitals: Pulse Ox 82 L 10/06/17 13:50 - Notes Notes: Physical Exam: General: Alert, appears chronically ill. HEENT: Normocephalic. Atraumatic. PERRL. Extraocular movements intact. Oropharynx clear. Neck: Supple. Non-tender. Respiratory: No respiratory distress. Clear and equal breath sounds bilaterally. Cardiovascular: Regular rate and rhythm. Abdominal: Normal Inspection. Non-tender. No distension. Normal Bowel Sounds. Back: Non-tender. No deformity or step off. Rectal: Digital rectal exam performed. External hemorrhoids. Large amounts of dark bloody liquid from rectal vault. Extremities: Moves all four extremities. Upper extremities: Normal inspection. Normal ROM. Lower extremities: Normal inspection. No edema. Normal ROM. Neurological: Normal cognition. AAOx4, reasonably alert. Normal speech. Psychological: Normal affect. Normal Mood. Skin: Very dry, scaly, large flakes consistent with xerosis. The large scaly portions of skin form a shell as areas that were wiped with moisture revealed dermis which appears to mimic a second-degree burn. (MONIQUE DUDLEY) Course - Laboratory Result Diagrams: 10/06/17 13:50 10/06/17 13:50 <MONIQUE DUDLEY - Last Filed: 10/06/17 17:49> - Laboratory Result Diagrams: 10/06/17 13:50 10/06/17 13:50 - Consults Dr. Wolff Consulted provider: other - Will accept at [facility]. <RBAYAN OLVERA - Last Filed: 10/06/17 18:51> - Re-evaluation Re-evalutation: 10/06/17 16:04 The patient's skin is dry with very large adherent flakes involving the entire body except for the cheeks of the face. When the nurses tried to clean the bloody stool off of his inner thighs, the large skin flakes detached exposing dermis that is weeping some. Review of the patient's lab work over the past 2 weeks shows the hemoglobin has acutely dropped from 12.3 to 9.0, the albumin has dropped from 3.7 to 2.5, the BUN has increased from 9 to 38 while the creatinine has increased from 1.83 to 2.68 The initial temperature was 94.1, after being on the bear hugger for a while, the temperature is increased to 96.0 On 08/29/2017 a chest x-ray was unremarkable and bilateral lower extremity venous Doppler study was negative. 10/06/17 18:51 Transport services here to take the patient. I had a long discussion with the cradle slide maker about what is transpired with this patient in the last month and a half. His blood pressure pulse and room air pulse ox all remain in the normal range. He is stable for transport. (BRAYAN OLVERA) - Vital Signs Vital signs: Temp Pulse Resp BP Pulse Ox 99.0 F 24 H 130/76 H 98 10/06/17 18:30 10/06/17 18:30 10/06/17 18:30 10/06/17 18:30 - Laboratory Laboratory results interpreted by me: 10/06/17 10/06/17 10/06/17 13:50 13:50 14:57 WBC 13.9 H RBC 3.02 L Hgb 9.0 L Hct 27.2 L RDW 15.6 H Absolute Neutrophils 10.0 H Sodium 147.2 H Chloride 110 H BUN 38 H Creatinine 2.68 H Est GFR ( Amer) 28 L Est GFR (Non-Af Amer) 23 L Glucose 139 H ALT 20 L Creatine Kinase 47 L Total Protein 5.0 L Albumin 2.5 L Urine Protein 100 H Urine Blood LARGE H Critical Care Note - Critical Care Note Total time excluding time spent on procedures (mins): 45 <BRAAYN OLVERA - Last Filed: 10/06/17 18:51> Discharge <MONIQUE DUDLEY - Last Filed: 10/06/17 17:49> <BRAYAN OLVERA - Last Filed: 10/06/17 18:51> - Discharge Clinical Impression: Lower GI bleed, Skin desquamation, Xerosis of skin, Hypoalbuminemia Anemia Qualifiers: Anemia type: unspecified type Qualified Code(s): D64.9 - Anemia, unspecified Hypothermia Qualifiers: Encounter type: initial encounter Qualified Code(s): T68.XXXA - Hypothermia, initial encounter Condition: Stable Disposition: [facility], [facility]1983 Attestation: 10/06/17 16:15 I personally performed the services described in the documentation, reviewed and edited the documentation which was dictated to the scribe in my presence, and it accurately records my words and actions. (BRAYAN OLVERA) Scribe Documentation - Scribe Written by Juventino:: Juventino Guillen, 10/06/2017 1755 acting as scribe for :: Amandeep <MONIQUE DUDLEY - Last Filed: 10/06/17 17:49>
[2017-10-06 17:57] LABS: PROTHROMBIN TIME 14.8 SEC (11.4-15.4)
[2017-10-06 18:41] VITALS: BP 130/76
== END 2017-10-06 18:40 | disposition short-term general hospital (02) ==
LOC: ER 13:38
DX: K92.2 Gastrointestinal hemorrhage, unspecified (principal); D64.9 Anemia, unspecified; T68.XXXA Hypothermia, initial encounter; X58.XXXA Exposure to other specified factors, initial encounter; R55 Syncope and collapse; E88.09 Other disorders of plasma-protein metabolism, not elsewhere classified; L85.3 Xerosis cutis; R23.4 Changes in skin texture; I10 Essential (primary) hypertension; I25.2 Old myocardial infarction; J44.9 Chronic obstructive pulmonary disease, unspecified; F17.210 Nicotine dependence, cigarettes, uncomplicated; Z88.0 Allergy status to penicillin
CPT/HCPCS: 99291; 96361; 51702; 96374; 96375; 86900; 86901; 36415; 86850; 82550; 85025; 85610; 80053; 81001; 84484; 83605; J3010; J2930; J7030